=== PATIENT | male | born 1955 | race Caucasian/White ===

== ENCOUNTER → 2020-05-10 | Outpatient (CLI) | payer OTHER, SELFPAY ==
[~2020-05-10] VITALS: Ht 185.4 cm; Wt 102.0 kg
[2020-05-10 15:57] LABS: BASOPHIL % 1.2 % (0.2-1.5); PLATELET COUNT 228 x10^3mcL (152-348); RED CELL DISTRIBUTION WIDTH 14.1 % (12.1-16.2)
[2020-05-10 16:12] LABS: ALKALINE PHOSPHATASE 83 U/L (46-116); ALT/SGPT 60 U/L (16-63); AST/SGOT 22 U/L (15-37); BILIRUBIN TOTAL 0.36 mg/dL (0.20-1.00); CALCIUM 8.9 mg/dL (8.5-10.1); CARBON DIOXIDE 30.3 mmol/L (21-32); CHLORIDE SERUM 105 mmol/L (98-107); CREATININE SERUM 0.9 mg/dL (0.7-1.3); GFR1 > 60 mL/min; GLUCOSE SERUM 82 mg/dL (74-106); POTASSIUM SERUM 4.4 mmol/L (3.5-5.1); SODIUM SERUM 141 mmol/L (136-145)
[2020-05-10 16:13] LABS: ALBUMIN 3.1 g/dL (3.4-5.0)
== END | disposition home or self-care (01) ==
LOC: RD 14:08 → DS 05-14 13:00 → OR 05-14 13:00 → EDSTATUS 05-14 13:00
PROVIDERS: ATTEND Surgery
DX: K36 Other appendicitis (principal)